=== PATIENT | female | born 1990 | race Caucasian/White ===

== ENCOUNTER 2016-07-27 10:50 | Inpatient (IN) | payer SELFPAY ==
--- NOTE | 2016-07-27 11:14 | EDPHY ---
H & P Smoking Status: Never smoked Time Seen by Provider: 07/27/16 10:58 HPI/ROS: CHIEF COMPLAINT: Facial swelling HISTORY OF PRESENT ILLNESS: 25-year-old female presents to the emergency department by private vehicle completed of left-sided facial swelling. The patient has had a previous root canal to her left lower 2nd molar 1 year ago. She has had problems with this tooth in the past as well. She noted some facial swelling to the left side of her face 2 days ago that has subsequently become much worse. She went to urgent care yesterday and received IM shot of Rocephin and was sent home on oral clindamycin. She states when she woke up this morning the swelling was significantly worse and has extended now into the submandibular area. She has some mild dysphagia. She does have some odynophagia. She denies chest pain or difficulty breathing. No fevers or chills. No rash. No other neck pain. She has not noticed any sublingual swelling. REVIEW OF SYSTEMS: Constitutional: No fever, no chills. Eyes: No double or blurry vision. ENT: No sore throat. Respiratory: No cough, no shortness of breath. Cardiac: No chest pain. Gastrointestinal: No abdominal pain, vomiting or diarrhea. Genitourinary: No dysuria. Musculoskeletal: No neck or back pain. Skin: No rashes. Neurological: No headache. (Sri Henriquez) Past Medical/Surgical History: Negative (Sri Henriquez) Social History: Single from [place] (Sri Henriquez) Physical Exam: General Appearance: Alert, no distress. 36.7, heart rate 80, nontoxic- appearing. Eyes: Pupils equal and round. Extraocular motions are all intact. ENT: Mouth: Mucous membranes moist. Teeth appear to be in good repair. She has a cap noted to her left lower 2nd molar. There is no surrounding redness or gingival swelling. She has no pain with palpation in the buccal mucosa. She has pain with palpation however just below the left angle of the mandible extending into the submandibular area. It is very swollen, very firm and tender to palpate. It is warm to the touch. There is no pre or postauricular lymphadenopathy. Her neck is supple. There is no sublingual swelling noted. Respiratory: No wheezing, rhonchi, or rales, lungs are clear to auscultation. Cardiovascular: Regular rate and rhythm. Gastrointestinal: Abdomen is soft and nontender, no masses, no rebound or guarding, bowel sounds normal. Neurological: Alert and oriented x 3, cranial nerves II through XII grossly intact Skin: Warm and dry, no rashes. Musculoskeletal: Nontender to palpate along the cervical, thoracic or lumbar spine. Neck is supple. Extremities: Full range of motion and no peripheral edema. Psychiatric: Patient is oriented X 3, there is no agitation. (Sri Henriquez) Constitutional: Initial Vital Signs Temperature (C) 36.7 C 07/27/16 10:52 Heart Rate 81 07/27/16 10:52 Respiratory Rate 96 H 07/27/16 10:52 Blood Pressure 140/89 H 07/27/16 10:52 O2 Delivery Mode Room Air Allergies/Adverse Reactions: No Known Allergies Allergy (Unverified 07/27/16 10:58) Home Medications: Medication Instructions Recorded Clindamycin HCl [Cleocin HCl] 300 mg PO TID 07/27/16 traMADol [Ultram 50 mg (*)] 50 mg PO Q6 PRN 07/27/16 Medical Decision Making - Diagnostics Imaging: CT imaging soft tissue neck reveals large left lower perimandibular abscess measuring 3 cm in diameter related to an abscess to the left 1st molar. This was reported to me by Dr. Rohith Kirkpatrick. (Sri Henriquez) ED Course/Re-evaluation: 25-year-old female presents to the emergency department with facial swelling and concerns about dental abscess. She went to urgent care last night and received 1 g of Rocephin IM and was given prescription for oral clindamycin. He she was not able to fill the clindamycin until today and did not start this medication. She presents to the emergency department with now with worsening swelling. The patient is afebrile, white blood cell count of over 12,000. On exam she has a large amount of facial swelling with submandibular swelling. No sublingual swelling. The case was discussed with Dr. Isauro Rodriguez, secondary supervising physician, who did not directly evaluate the patient but agrees with treatment and plan. CT soft tissue neck reveals large left lower perimandibular abscess measuring 3 cm in diameter related to the left 1st molar root abscess. The patient was given 600 mg of IV clindamycin in the emergency department. Unfortunately there was no on-call oral surgeon available. Dr. Chris Coe spoke with the on-call ENT, Dr. Kwame Walker, and the patient will be taken to the operating room for incision and drainage of the abscess. ( MartinezSri M) Differential Diagnosis: Including but not limited to dental abscess, submandibular abscess, cellulitis, Earl's angina (Sri Henriquez) Other Provider: I evaluated and participated in the management of the patient. I also evaluated the patient independently. My co-signature indicates that I have reviewed this chart and I agree with the findings and plan of care as documented. My personal H&P findings include: The patient presents to the ED with progressive swelling, erythema and pain involving her left submandibular soft tissues. The patient does have some trismus. The patient has stable vital signs with referred odynophagia. PHYSICAL EXAM General Appearance: Alert, no distress Eyes: Pupils equal and round no pallor or injection ENT, Mouth: Soft tissue swelling, tenderness and erythema noted along the angle of the left mandible Respiratory: There are no retractions, lungs are clear to auscultation Cardiovascular: Regular rate and rhythm Gastrointestinal: Abdomen is soft and nontender, no masses, bowel sounds normal Neurological: A&O, normal motor function, normal sensory exam, normal cranial nerves Skin: Warm and dry, no rashes Musculoskeletal: Neck is supple nontender Extremities: symmetrical, full range of motion I reviewed her CT scan in the emergency department. The patient received IV clindamycin. Consulted with Dr. Kwame Walker directly who is on-call for ENT who is making arrangements to take the patient to the operating room this evening. (Colin Coe) - Data Points Laboratory Results: Laboratory Results 07/27/16 11:22 07/27/16 14:10 07/27/16 07/27/16 07/27/16 14:10 14:10 11:22 WBC 12.40 10^3/uL H 10^3/uL (3.80-9.50) RBC 5.00 10^6/uL 10^6/uL (4.18-5.33) Hgb 14.8 g/dL g/dL (12.6-16.3) Hct 44.8 % % (38.0-47.0) MCV 89.6 fL fL (81.5-99.8) MCH 29.6 pg pg (27.9-34.1) MCHC 33.0 g/dL g/dL (32.4-36.7) RDW 13.2 % % (11.5-15.2) Plt Count 332 10^3/uL 10^3/uL (150-400) MPV 11.0 fL fL (8.7-11.7) Neut % (Auto) 70.1 % % (39.3-74.2) Lymph % (Auto) 17.3 % % (15.0-45.0) Davis % (Auto) 11.4 % % (4.5-13.0) Eos % (Auto) 0.4 % L % (0.6-7.6) Baso % (Auto) 0.5 % % (0.3-1.7) Nucleat RBC Rel Count 0.0 % % (0.0-0.2) Absolute Neuts (auto) 8.70 10^3/uL H 10^3/uL (1.70-6.50) Absolute Lymphs (auto) 2.14 10^3/uL 10^3/uL (1.00-3.00) Absolute Monos (auto) 1.41 10^3/uL H 10^3/uL (0.30-0.80) Absolute Eos (auto) 0.05 10^3/uL 10^3/uL (0.03-0.40) Absolute Basos (auto) 0.06 10^3/uL 10^3/uL (0.02-0.10) Absolute Nucleated RBC 0.00 10^3/uL 10^3/uL (0-0.01) Immature Gran % 0.3 % % (0.0-1.1) Immature Gran # 0.04 10^3/uL 10^3/uL (0.00-0.10) Sodium 138 mEq/L mEq/L (134-144) Potassium 4.4 mEq/L mEq/L (3.5-5.2) Chloride 103 mEq/L mEq/L (97-110) Carbon Dioxide 23 mEq/l mEq/l (22-31) Anion Gap 12 mEq/L mEq/L (8-16) BUN 9 mg/dL mg/dL (7-23) Creatinine 0.6 mg/dL mg/dL (0.6-1.0) Estimated GFR > 60 Glucose 92 mg/dL mg/dL (70-100) Calcium 9.4 mg/dL mg/dL (8.5-10.4) Beta HCG, Qual NEGATIVE Medications Given: Discontinued Medications Clindamycin Phosphate/Dextrose (Cleocin 600 Mg (Premix)) 50 mls @ 100 mls/hr IV EDNOW ONE PRN Reason: Protocol Stop: 07/27/16 14:03 Last Admin: 07/27/16 13:52 Dose: 50 mls Morphine Sulfate (Morphine) 4 mg IVP ONCE ONE Stop: 07/27/16 14:03 Last Admin: 07/27/16 14:02 Dose: 4 mg Departure - Departure Disposition: [facility] Inpatient Acute Clinical Impression: Submandibular abscess Condition: Good
[2016-07-27 11:42] LABS: ADD DIFF? NO; ADD MORPH? NO; ADD SCAN? NO; ATYPICAL LYMPHOCYTE FLAG 0 (0-99); FRAGMENT RBC FLAG 0 (0-99); LEFT SHIFT FLG 0 (0-99); PLATELET CLUMPS FLAG 10 (0-99)
[2016-07-27] MEDS ORDERED: IOPAMIDOL (ISOVUE-300) 100 ML BTL IV ONE (11:54)
[2016-07-27 12:03] LABS: LIPEMIA HEMOLYSIS FLAG 80 (0-99)
[2016-07-27 12:07] LABS: HEMATOCRIT 44.8 % (38.0-47.0); HEMOGLOBIN 14.8 g/dL (12.6-16.3); MEAN CELL HEMOGLOBIN 29.6 pg (27.9-34.1); MEAN CELL VOLUME 89.6 fL (81.5-99.8); PLATELET COUNT 332 10^3/uL (150-400); RED CELL DISTRIBUTION WIDTH 13.2 % (11.5-15.2)
[2016-07-27 12:08] LABS: % IMMATURE GRANULYOCYTES 0.3 % (0.0-1.1); ABSOLUTE IMMATURE GRANULOCYTES 0.04 10^3/uL (0.00-0.10)
[2016-07-27] MEDS ORDERED: CLINDAMYCIN 600 MG/DEXTROSE 50 ML IV ONE (13:34)
[2016-07-27 14:34] LABS: ANION GAP 12 mEq/L (8-16); CALCIUM 9.4 mg/dL (8.5-10.4); CARBON DIOXIDE 23 mEq/l (22-31); CHLORIDE 103 mEq/L (97-110); CREATININE 0.6 mg/dL (0.6-1.0); GLOMERULAR FILTRATION RATE > 60; GLUCOSE 92 mg/dL (70-100); POTASSIUM 4.4 mEq/L (3.5-5.2); SODIUM 138 mEq/L (134-144)
[2016-07-27] MEDS ORDERED: LIDO/EPI 1% **Not for Epidural 20 ML MDV ONE (15:04)
[2016-07-27] MEDS ORDERED: MIDAZOLAM 2 MG/2 ML VIAL ONE (15:18)
[2016-07-27] MEDS ORDERED: fentaNYL 250 MCG/5 ML INJ ONE (15:20)
[2016-07-27] MEDS ORDERED: PROPOFOL/EMULSION 500 MG/50 ML BOTTLE IV ONE ×2 (15:21→16:16)
[2016-07-27] MEDS ORDERED: ONDANSETRON 4 MG/2 ML VIAL IVP PRN (15:54)
[2016-07-27] MEDS ORDERED: REMIFENTANIL HCL 1 MG VIAL ONE (16:15)
[2016-07-27] MEDS ORDERED: SUGAMMADEX SODIUM 200 MG/2 ML VIAL IVP ONE ×2 (16:23)
[2016-07-27] MEDS ORDERED: fentaNYL 100 MCG/2 ML INJ ONE (17:31)
[2016-07-27] MEDS: D5W 1/2 NS W/ 20 KCl/L 1,000 ML IV SCH (18:17)
--- NOTE | 2016-07-27 18:36 | GCON ---
EAR, NOSE AND THROAT EMERGENCY ROOM CONSULTATION DATE OF CONSULTATION: 07/27/2016 CHIEF COMPLAINT: Left neck mass. HISTORY OF PRESENT ILLNESS: The patient is a 25-year-old woman who notes a 2-day history of increas ing left neck swelling with no recent upper respiratory infectious symptoms. She notes pain and dis comfort from the swelling, but has does not have any dyspnea, hoarseness, or dysphagia. Of note, th e patient does have a history of a root canal roughly one year ago in this area and has had a simila r episode of much milder swelling and discomfort in this area one time during the ensuing year which resolved. I am not sure if antibiotics were required at that time. PAST MEDICAL HISTORY: Noncontributory. PAST SURGICAL HISTORY: Otherwise noncontributory. ALLERGIES: Patient has no known drug allergies. MEDICATIONS: Takes no medications. REVIEW OF SYSTEMS: Noncontributory. PHYSICAL EXAMINATION: GENERAL: The patient is a 25-year-old woman breathing comfortably, in no acu te distress. Her voice is normal. HEENT: Anterior neck submandibular area swelling, roughly 3x3 cm, along the jaw line, about 3-4 cm lateral to the mandibular symphysis in the midline. There is some overlying erythema of the neck an d marked edema of the soft tissue noted. The patient did not exhibit any significant [id number] edema, although she has some mild gingival buccal edema on that left mandibular side. There is no stone palpable in the submandibular duct. The remainder of her comprehensive head and neck exam is otherwise unremarkable. The patient has undergone a CAT scan of her neck which does reveal a 3x3 cm rim enhancing lesion of the anterior submandibular region of the neck which is subplatysmal and draped over the inferior bor tor of the mandible anteriorly and posteriorly. The lesion is consistent with an abscess. IMPRESSION: It is my impression that the patient has a submandibular abscess which is likely from a mandibular canine tooth which appears to be the source on the CAT scan with communication of the ab scess cavity with the periapical dental enhancement on the scan. She is set up for dental extractio n of this tooth early this coming week. The plan for the patient will be to undergo and incision an d drainage of her neck abscess in the operating room with anesthesia. We have had a lengthy discussion regarding nerve paresis and/or paralysis as well as the other risks , benefits, indications, options, possible complications of this type of procedure. We have also di scussed the need to have the tooth extraction as this is the etiology of her infection. The patient was aware of these issues as well as risks at the conclusion of our discussion. Was appropriate du ring our discussion, and she was given a chance to have her questions answered. We will proceed to the operating room for I and D of neck abscess. /[id number]/MODL
--- NOTE | 2016-07-27 20:05 | GOP ---
DATE OF OPERATION: 07/27/2016 SURGEON: Kwame Walker MD HOUSEKEEPER SUPERVISOR: Jael Lakhani. ANESTHESIA: General. PREOPERATIVE DIAGNOSIS: POSTOPERATIVE DIAGNOSIS: PROCEDURE PERFORMED: I and D of left neck abscess with drain placement. FINDINGS: ESTIMATED BLOOD LOSS: Less than 25 mL. Cultures are sent from the wound. INDICATIONS: A 25-year-old woman with a left neck abscess. The risks, benefits, indications, optio ns, possible complications of this procedure were discussed in length with the patient. Prior to si gning informed consent, she was given a chance to have her questions answered. risks and complications included but are not limited to bleeding, infection, anesthesia risks, facial nerve _ and/or paralysis. The patient was aware of the discussion was appropriate duri ng the discussion. DESCRIPTION OF PROCEDURE: The patient is a 25-year-old female brought to the operating room where g eneral anesthesia was induced and endotracheal intubation was performed. The left neck was placed i n lateral extension. The landmarks of the left neck were marked out including angle of the mandible and the symphysis. The abscess cavity was noted along the inferior mandibular border, roughly 1/3 of the distance from the midline to the angle. The neck was prepped and draped in sterile fashion, and a 1.5 to 2 cm incision placed just underneath the inferior border of the abscess. The skin was incised with a 15 blade down through the dermis. [place] nerve stimulator was then used to stimulate the surrounding soft tissue with no stimulation of the facial nerve noted. The patient was not par alyzed during the procedure anesthesia. The tenotomy scissors were then used to gently d issect through the subcutaneous tissue with frequent checking of the region with the [place] nerve st imulator with no nerve stimulation noted. The platysma muscle was identified and dissected through this approach on the way to the abscess cavity. At this point, the [place] nerve stimulator was used and stimulation of the marginal branch of the mandibular nerve was noted in the inferolateral porti on of the soft tissue dissection below the area of the field in the inferolateral portion of the kate gical field well below the area and direction of dissection. Dissection then proceeded into the abs cess cavity with copious amounts of pus noted to extrude through the wound. This was cultured and s uctioned. The abscess cavity was then explored with a Q-Tip and a clamp to make sure there were no loculations. The abscess cavity was noted to exist both on the anterior and posterior surface of th e mandibular body. The abscess cavity was then copiously irrigated with saline and peroxide. A christie rter-inch Justin drain was then placed in the abscess cavity, exiting the mid portion of the neck w ound. A 4-0 silk suture was then used to close the neck incision, leaving open a portion of the inc ision in the middle to allow for egressive pus and fluid. The Shel[place] drain was sewn to one of the stitches to anchor it in place. The neck was then dressed with a fluff and Irving dressing, and the patient was awakened, extubated uneventfully and brought to the recovery room in stable condition wh ere she was expected to do well postoperatively. There was good movement of the marginal branch as well as all the branches of the facial nerve noted bilaterally in the recovery room immediately post operatively. The patient tolerated the procedure well. CHIEF COMPLAINT: Left neck abscess. /[id number]/MODL
[2016-07-27] MEDS: CLINDAMYCIN 600 MG/DEXTROSE 50 ML IV SCH (20:22)
[2016-07-27] MEDS: OXYCODONE/APAP 5/325 TAB PO PRN (20:44)
[2016-07-27] MEDS: DEXAMETHASONE 4 MG/ML VIAL IVP SCH (22:26)
[2016-07-28] MEDS: OXYCODONE/APAP 5/325 TAB PO PRN ×5 (00:11→21:53)
[2016-07-28] MEDS: CLINDAMYCIN 600 MG/DEXTROSE 50 ML IV SCH ×5 (00:12→23:31)
[2016-07-28] MEDS: DEXAMETHASONE 4 MG/ML VIAL IVP SCH ×3 (06:02→21:53)
[2016-07-28] MEDS: D5W 1/2 NS W/ 20 KCl/L 1,000 ML IV SCH ×2 (06:32→20:30)
--- NOTE | 2016-07-28 12:26 | SOAPPROG ---
SOAP Progress Note Assessment/Plan: pt s/p I&D left mandibular abcess. Doiong better today, less tender. neck- dressing removed, area less inflamed, drain in place. new dressing placed. Plan:Pt with left mandibular abcess. Plan for discharge in am. she will need to see oral surgery sahil to have tooth pulled. Plan is for drain to stay in until tooth pulled. 07/28/16 12:24 Objective: Vital Signs Temp Pulse Resp BP Pulse Ox 36.8 C 64 12 123/68 H 94 07/28/16 11:52 07/28/16 11:52 07/28/16 11:52 07/28/16 11:52 07/28/16 11:52 Microbiology 07/27/16 16:32 Gram Stain - Final Other - Eswab 07/27/16 16:32 Gram Stain - Final Other - Eswab 07/27/16 07/28/16 07/29/16 05:59 05:59 05:59 Intake Total 1000 1034 Output Total 5 Balance 995 1034 - Pending Discharge Pending Discharge Within 24 Hours: Yes Pending Discharge Date: 07/29/16 Pending Discharge Time: 11:00 ICD10 Worksheet Patient Problems: Problems Problem Status Onset Submandibular abscess Acute
[2016-07-29] MEDS: DEXAMETHASONE 4 MG/ML VIAL IVP SCH (04:26)
[2016-07-29] MEDS: CLINDAMYCIN 600 MG/DEXTROSE 50 ML IV SCH (04:26)
[2016-07-29 07:53] VITALS: BP 125/71; PULSE 76; RESP 18; TEMP 97.9; O2SAT 96
--- NOTE | 2016-07-29 08:09 | SOAPPROG ---
SOAP Progress Note Assessment/Plan: Assessment: 25 year old female s/p left submandibular abscess I&D. Doing quite well today. Swelling significantly better. Mild purulence from gina drain. I changed dressing today. She was given phone numbers for oral surgery in order to have the tooth pulled. She as instructed to see our office 1-2 days after dental extraction in order for us to remove gina drain. She will change dressing at home every 1-2 days. - I gave her prescription for clindamycin 300 q6 hours - Follow-up with oral surgery for dental extraction - Follow-up with our office 1-2 days after extraction for gina drain removal -- I gave her our office number - Patient asked if she could smoke following discharge and I explicitly stated that she should not smoke -- I strongly recommended smoking cessation 07/29/16 08:09 Subjective: 25 year old female POD 2 s/p left submandibular abscess I&D. Doing well. Pain controlled. Swelling improved. Objective: Vital Signs Temp Pulse Resp BP Pulse Ox 36.6 C 76 18 125/71 H 96 07/29/16 07:52 07/29/16 07:52 07/29/16 07:52 07/29/16 07:52 07/29/16 07:52 Microbiology 07/27/16 16:32 Gram Stain - Final Other - Eswab 07/27/16 16:32 Gram Stain - Final Other - Eswab 07/28/16 07/29/16 07/30/16 05:59 05:59 05:59 Intake Total 1000 1334 Output Total 5 Balance 995 1334 No fluctuance Mild purulence from gina drain FOM soft OP normal Dressing replaced ICD10 Worksheet Patient Problems: Problems Problem Status Onset Submandibular abscess Acute
== END 2016-07-29 11:09 | disposition home or self-care (01) | DRG 580 ==
LOC: OBSVTOIN 15:54 → F1N 17:50
PROVIDERS: ADMIT Otolaryngology; ATTEND Otolaryngology
PROC: 0J940ZZ Drainage of Right Neck Subcutaneous Tissue and Fascia, Open Approach (ICD-10-PCS; principal; 2016-07-27 15:47)
DX: L03.221 Cellulitis of neck (principal); K12.2 Cellulitis and abscess of mouth; K04.7 Periapical abscess without sinus; F17.210 Nicotine dependence, cigarettes, uncomplicated
CPT/HCPCS: 96365; J0696; J1100; J2250; J2704; J3010; Q9967